=== PATIENT | female | born 1935 | race Hispanic/Latino ===

== ENCOUNTER 2019-04-19 04:28 | Observation (INO) | payer MEDICARE, OTHER, SELFPAY ==
[~2019-04-19] VITALS: Ht 154.9 cm; Wt 53.5 kg
[2019-04-19] MEDS ORDERED: SODIUM CHLORIDE 0.9% 1000ML 1,000 ML IV ONE ×2 (05:13→15:38)
[2019-04-19 05:17] LABS: BASOPHILS % (AUTO) 0.5 % (0.0-5.0); EOSINOPHILS % (AUTO) 1.3 % (0.0-8.0); HEMATOCRIT 41.7 % (36-48); LYMPHOCYTES % (AUTO) 40.9 % (21.0-51.0); MEAN CORPUSCULAR HEMOGLOBIN 30.6 pg (27.0-33.0); MEAN CORPUSCULAR VOLUME 92.8 fL (79-99); MONOCYTES % (AUTO) 8.2 % (3.0-13.0); NEUTROPHILS % (AUTO) 49.1 % (40.0-77.0); PLATELET COUNT (AUTO) 294 K/uL (130-400); RED CELL DISTRIBUTION WIDTH 13.8 % (11.0-15.5); WHITE BLOOD COUNT (AUTO) 6.6 K/uL (4.8-10.8)
[2019-04-19 05:18] LABS: APPEARANCE,URINE Clear (CLEAR); BILIRUBIN,URINE Negative (NEGATIVE); COLOR,URINE Yellow (YELLOW); GLUCOSE, URINE (UA) Negative (NEGATIVE); KETONES,URINE Negative (NEGATIVE); LEUKOCYTE ESTERASE ,URINE Small (NEGATIVE); NITRATE,URINE Negative (NEGATIVE); OCCULT BLOOD,URINE Moderate (NEGATIVE); PROTEIN,URINE Negative (NEGATIVE)
[2019-04-19 05:27] LABS: BACTERIA,URINE None Seen /HPF (None Seen); MUCUS,URINE Few LPF (None Seen); RBC,URINE 0-1 /HPF (0-1); SQUAMOUS EPITHELIAL CELL,UR Rare /HPF (0-2); WBC,URINE 0-1 /HPF (0-1)
[2019-04-19 05:33] LABS: POTASSIUM 3.8 mmol/L (3.5-5.1)
[2019-04-19 05:46] LABS: ALBUMIN 4.1 g/dL (3.5-5.0); BILIRUBIN,TOTAL 0.5 mg/dL (0.2-1.0); THYROID STIMULATING HORMONE 5.53 uIU/mL (0.36-3.74); TOTAL PROTEIN, SERUM 7.9 g/dL (6.0-8.3)
[2019-04-19] MEDS: SODIUM CHLORIDE 0.9% 1000ML 1,000 ML IV SCH (10:52)
[2019-04-19] MEDS ORDERED: ACETAMINOPHEN-CODEINE 300/30MG TAB PO PRN (11:00)
[2019-04-19] MEDS ORDERED: NITROGLYCERIN 1GM/1 INCH PACKET TD PRN (11:15)
[2019-04-19] MEDS ORDERED: NITROGLYCERIN 1GM/1 INCH PACKET TD ONE (12:14)
[2019-04-19 16:00] VITALS: BP 132/57
[2019-04-19 20:00] VITALS: BP 113/59
[2019-04-20] VITALS: BP 122/57
[2019-04-20 03:59] VITALS: BP 138/66
[2019-04-20 05:03] LABS: HEMATOCRIT 32.8 % (36-48); MEAN CORPUSCULAR HEMOGLOBIN 30.9 pg (27.0-33.0); MEAN CORPUSCULAR HGB CONC 33.2 g/dL (32.0-36.0); MEAN CORPUSCULAR VOLUME 92.8 fL (79-99); PLATELET COUNT (AUTO) 254 K/uL (130-400); RED BLOOD CELL COUNT(AUTO) 3.54 MIL/uL (4.00-5.50); RED CELL DISTRIBUTION WIDTH 13.8 % (11.0-15.5); WHITE BLOOD COUNT (AUTO) 7.8 K/uL (4.8-10.8)
[2019-04-20 05:13] LABS: CREATININE 0.8 mg/dL (0.5-1.5); POTASSIUM 3.9 mmol/L (3.5-5.1)
[2019-04-20 08:00] VITALS: BP 138/65
[2019-04-20] MEDS: FAMOTIDINE 20MG TAB 20 MG TAB PO SCH (09:51)
[2019-04-20] MEDS: ENOXAPARIN SODIUM 30 MG/0.3 ML SQ SCH (09:52)
--- NOTE | 2019-04-20 10:05 | NUR ---
Emily Mckeon met with pt who states she lives with her sister Renetta Ho [phone]. Pt reports she is independent of ADLS, no DME or HH. Pt seen by Dr Vallecillo and uses [facility]. Pt denies dc needs, plan is home at dc Addendum: 04/20/19 at 1006 by LEEANNE WORTHINGTON Amended: Links added.
[2019-04-20 12:00] VITALS: BP 134/63
[2019-04-20 16:00] VITALS: BP 115/56
[2019-04-20] MEDS: SODIUM CHLORIDE 0.9% 1000ML 1,000 ML IV SCH (16:45)
[2019-04-20 19:00] VITALS: BP 134/54
--- NOTE | 2019-04-20 19:34 | NUR ---
[facility] Patient attending was transfered from hospitalist to [facility]. [employer] doctor police communications operator has been paged.
--- NOTE | 2019-04-20 19:45 | NUR ---
ATTENDING Dr. Napoles has been notified he is the attending for patient. He had lab work, EKG, pending tests reviewed with him over the telephone. Stated he will see patient tomororw. Patien has been updated. Patient and family verbalized and demonstrated understanding. No chest pain.
[2019-04-20] MEDS ORDERED: ERGO500014 PO (20:17)
[2019-04-20] MEDS ORDERED: LOSA25TA41 PO (20:17)
[2019-04-20] MEDS ORDERED: ATOR10 PO (20:17)
[2019-04-21] VITALS: BP 140/72
[2019-04-21 07:30] VITALS: BP 149/68
[2019-04-21] MEDS: FAMOTIDINE 20MG TAB 20 MG TAB PO SCH (09:08)
[2019-04-21] MEDS: ENOXAPARIN SODIUM 30 MG/0.3 ML SQ SCH (09:09)
== END 2019-04-21 11:27 | disposition home or self-care (01) ==
LOC: EDH 04:28 → EDHIP 10:52 → 3AH 15:14
PROVIDERS: ADMIT Internal Medicine Pulmonary Disease; ATTEND Internal Medicine Pulmonary Disease
DX: E86.0 Dehydration (principal); M94.0 Chondrocostal junction syndrome [Tietze]; D64.9 Anemia, unspecified; N39.0 Urinary tract infection, site not specified; E78.5 Hyperlipidemia, unspecified; I77.89 Other specified disorders of arteries and arterioles; I10 Essential (primary) hypertension; Z88.6 Allergy status to analgesic agent; Z79.899 Other long term (current) drug therapy
CPT/HCPCS: 36415 ×2; 71045; 80048; 80053; 81001; 82550; 83605; 83690; 84443; 84484 ×4; 85025; 85027; 87077; 87088; 87186; 93005 ×4; 93880; 96360; 96361 ×2; 96372 ×2; 97116; 97161; 99284; G0378 ×48; G8978; G8979; G8980; G8981; G8982; G8983; J1650 ×2; J7030 ×2

== ENCOUNTER → 2019-09-21 | Outpatient (CLI) | payer OTHER ==
[~2019-09-21] VITALS: Ht 154.9 cm; Wt 50.8 kg
[~2019-09-21] MED LIST: ATOR10 PO; ERGO500014 PO; LOSA25TA41 PO; REGADENOSON 0.4 MG/5 ML PF SYG IVP SCH
== END | disposition home or self-care (01) ==
LOC: SHCH 08:00
PROVIDERS: ATTEND Internal Medicine Cardiovascular Disease
DX: R07.9 Chest pain, unspecified (principal)
CPT/HCPCS: 78452; 93017; 96374; A9500 ×2; J2785